=== PATIENT | male | born 1980 | race Caucasian/White ===

== ENCOUNTER 2020-12-19 15:25 | Emergency (ER) | payer OTHER, SELFPAY ==
[2020-12-19 15:32] VITALS: BP 129/83; PULSE 85; RESP 16; TEMP 36.4; O2SAT 100
--- NOTE | 2020-12-19 15:40 | ED.SKABFB ---
HPI - Skin/Abscess/Foreign Bdy General Chief complaint: Skin/Abscess/Foreign Body Stated complaint: Boil under right arm Time Seen by Provider: 12/19/20 15:38 Source: patient and RN notes reviewed Mode of arrival: ambulatory Limitations: no limitations History of Present Illness HPI narrative: 40-year-old male presents to the [facility] with complaints of an abscess to the right axilla. States has been there for a couple of days. HX of MRSA. MD complaint: abscess/boil Related Data Home Medications Medication Instructions Recorded Confirmed No Home Medications 12/19/20 12/19/20 Allergies Allergy/AdvReac Type Severity Reaction Status Date / Time Sulfa (Sulfonamide Allergy Mild Verified 03/28/19 18:38 Antibiotics) Review of Systems Review of Systems: All systems reviewed & are unremarkable except as noted in HPI and below Constitutional: Constitutional: Reports no additional constitutional complaints, Denies chills and Denies fever(s) Eyes: Eyes: Reports no additional eye complaints ENT: Reports system reviewed and no additional complaints, except as documented Cardiovascular: Cardiovascular: Reports no additional cardiovascular complaints Respiratory: Respiratory: Reports no additional respiratory complaints Musculoskeletal: Musculoskeletal: Reports no additional musculoskeletal complaints Integumentary/Breasts: Skin/Breast: Reports as per HPI and Reports erythema (Red raised area right axilla, with fluctuance) Neurologic: Reports system reviewed and no additional complaints, except as documented Psychiatric: Psychiatric: Reports as per HPI and Reports anxiety Allergic/Immunologic: Allergic/Immunologic: Reports no additional allergic/immunologic complaints, Denies lip swelling, Denies throat swelling, Denies tongue swelling and Denies wheezing PMFSH Comments At the time of my signature, I reviewed and agree with the nursing past medical, surgical, social, and family history. There is no relevant family history pertinent to the patient complaint. Exam Const: General: alert Nutritional Appearance: well nourished Orientation/consciousness: patient oriented x3 Limitations: no limitations Other: Appears in pain, anxious HENMT: Head: normal to inspection Eyes: Pupils: Equal, round and reactive pupils present Neck: Neck: normal visual inspection, no lymphadenopathy and no meningeal signs Chest: Chest palpation & inspection: normal inspection of the chest Resp: Effort & Inspection: normal respiratory effort and no use of accessory muscles Auscultation: clear to auscultation bilaterally, no crackles, no rales, no rhonchi and no wheezes Cardio: Rate: regular rate Rhythm: regular rhythm Back/Spine/Pelvis: Back: no CVA tenderness Skin: General skin exam: normal color Lesions: lesion noted right axilla size (4 x 2 cm), color red, consistency soft and fluctuant and tender Rashes: no rashes Neuro: General: patient oriented x3, moves all extremities, no meningeal signs and no focal motor deficits Speech: normal speech Gait exam (Neuro): Normal gait present Extrem: General: normal to inspection and no pedal edema Psych: Appearance: grossly normal and well kempt Mental Status: mental status grossly normal Affect: Anxious affect present Thought content: Yes Normal thought content present Course Course Emergency Course: Discharge instructions reviewed with patient, as well as provided in writing per nursing staff. The instructions also include specific and strict return/GO TO THE ER as well as f/u information. All questions have been answered, and the patient deny any further questions with discharge and discharge plan. Vital Signs Vital signs: Vital Signs Temperature 97.6 F 12/19/20 15:32 Pulse Rate 85 12/19/20 15:32 Respiratory Rate 16 12/19/20 15:32 Blood Pressure 129/83 12/19/20 15:32 Pulse Oximetry 100 12/19/20 15:32 Temperature 97.6 F 12/19/20 15:32 Pulse Rat
== END 2020-12-19 16:12 | disposition home or self-care (01) ==
PROVIDERS: Emergency Provider Nurse Practitioner; PCP Family Medicine
DX: L02.421 Furuncle of right axilla (principal); L02.411 Cutaneous abscess of right axilla; Z86.14 Personal history of Methicillin resistant Staphylococcus aureus infection
CPT/HCPCS: 10060; 87070; 87075; 87147; 87186; 87205; 99213; G0463

== ENCOUNTER 2023-02-02 14:11 | Emergency (ER) | payer OTHER, SELFPAY ==
--- NOTE | 2023-02-02 14:15 | ED_ITS ---
HPI - Wound/Laceration General Chief Complaint: Wound/Laceration Stated Complaint: Wound Check Time Seen by Provider: 02/02/23 14:16 Source: patient Mode of arrival: ambulatory Limitations: no limitations History of Present Illness HPI narrative: Jared is a 42-year-old male patient presenting to the clinic today for a wound check. He reports that he received a cut on his left wrist 1 week ago and went to [place] [facility] and had it sutured. He reports that they were supposed to take the sutures out today however he has redness, swelling, and erythema. He thinks that the wound may be infected. Related Data Allergies Allergy/AdvReac Type Severity Reaction Status Date / Time Sulfa (Sulfonamide Allergy Mild Rash Verified 02/02/23 14:19 Antibiotics) Review of Systems Review of Systems: Pertinent positives per HPI. Patient denies any fever, chills, rash, headache, visual changes, dizziness, cough, runny nose, sore throat, shortness of breath, chest pain, palpitations, nausea, vomiting, diarrhea, constipation, abdominal pain, or any urinary issues. PMFSH Comments At the time of my signature, I reviewed and agree with the nursing past medical, surgical, social, and family history. There is no relevant family history pertinent to the patient complaint. Exam Narrative: General: Well-developed, well nourished, in no apparent distress Head: Normocephalic, atraumatic. Cardio: Regular rate and rhythm, s1 and s2 normal, no murmur appreciated. Resp: Clear to auscultation bilaterally, no rhonchi, rales, wheezing or rubs. Integumentary: [place], warm, and dry, red, swollen, erythemic wound to the left wrist with 3 sutures intact, no drainage, tender and indurated to palpation Course Course Emergency Course: Portions of this record may have been created with voice recognition software. Level of Care: Express Care Visit Vital Signs Vital signs: Vital signs reviewed MDM - Wound/Laceration MDM Narrative Medical decision making narrative: At the time of visit patient is resting on the exam table. I suspect patient has a infected wound. Recommend not taking the sutures out today and leaving them in until infection has resolved. Supportive measures were discussed with the patient and he voiced understanding discharge instructions agrees to treatment plan. Differential Diagnosis Differential diagnosis: Likely laceration and other (Infected wound) Discharge Plan Discharge Clinical Impression: Wound infection Patient Disposition: Home, Self-Care Condition: Stable Instructions: Antibiotic Form, Surgical Site Infections (ED) Additional Instructions: Take doxycycline as prescribed Keep wound clean and dry Skin sutures out in 7-10 days. Watch for signs and symptoms of worsen infection- redness, streaking, swelling, purulent discharge, or increase in pain. Follow up with your PCP for suture removal or return to the Express care. Prescriptions: New doxycycline hyclate 100 mg tablet 100 mg PO BID 10 Days Qty: 20 0RF Follow-up/Referrals: Suzanne,Yeimi Yoder MD [Primary Care Provider] - Time of Disposition: 14:27 Quality NIHSS Nursing Documentation ED NIHSS nursing documentation: reviewed/agree
[2023-02-02 14:18] VITALS: BP 115/75; PULSE 86; RESP 16; TEMP 36.7; O2SAT 99
[2023-02-02 14:20] VITALS: BP 115/75; PULSE 86; RESP 16; TEMP 36.7; O2SAT 99
== END 2023-02-02 14:31 | disposition home or self-care (01) ==
PROVIDERS: Emergency Provider Nurse Practitioner Family; PCP Family Medicine
DX: S61.512D Laceration without foreign body of left wrist, subsequent encounter (principal); L08.9 Local infection of the skin and subcutaneous tissue, unspecified; W45.8XXD Other foreign body or object entering through skin, subsequent encounter; Z86.14 Personal history of Methicillin resistant Staphylococcus aureus infection
CPT/HCPCS: 99213; G0463